=== PATIENT | female | born 1950 ===

== ENCOUNTER 2019-09-11 12:43 | Emergency (ER) | payer OTHER ==
[~2019-09-11] VITALS: Ht 162.6 cm; Wt 108.9 kg
[~2019-09-11 12:43] MED LIST: COZAAR25 MG; GLIMEPIRIDE2 MG; JANUVIA25 MG
[2019-09-11] MEDS ORDERED: GRALISE600 MG (12:53)
== END 2019-09-11 20:25 | disposition home or self-care (01) ==
LOC: ER 12:43
DX: N39.0 Urinary tract infection, site not specified (principal); E11.69 Type 2 diabetes mellitus with other specified complication; R81 Glycosuria; B96.29 Other Escherichia coli [E. coli] as the cause of diseases classified elsewhere; R31.29 Other microscopic hematuria; Z03.818 Encounter for observation for suspected exposure to other biological agents ruled out; Z79.84 Long term (current) use of oral hypoglycemic drugs

== ENCOUNTER 2019-09-28 12:02 | Outpatient (CLI) | payer OTHER ==
[~2019-09-28 12:02] MED LIST changes: +GRALISE600 MG
== END 2019-09-28 12:07 | disposition home or self-care (01) ==
LOC: RAD 12:02
PROVIDERS: ATTEND Urology
DX: R50.9 Fever, unspecified (principal)

== ENCOUNTER 2019-09-28 12:06 | Outpatient (CLI) | payer OTHER | END 2019-09-28 12:10 | disposition home or self-care (01) | LOC: LAB 12:06 | PROVIDERS: ATTEND Urology | DX: N30.00 Acute cystitis without hematuria (principal); B96.29 Other Escherichia coli [E. coli] as the cause of diseases classified elsewhere ==